=== PATIENT | female | born 1985 | race Caucasian/White ===

== ENCOUNTER 2023-02-23 16:25 | Emergency (ER) | payer OTHER ==
[2023-02-23 16:44] VITALS: BP 122/81; PULSE 92; RESP 17; TEMP 98.2; BMI 29.1
== END 2023-02-23 18:04 | disposition home or self-care (01) ==
LOC: JERFT 16:25
DX: M25.562 Pain in left knee (principal); M25.462 Effusion, left knee; R22.42 Localized swelling, mass and lump, left lower limb
CPT/HCPCS: 73562-TC-LT-FY; 99283-25